=== PATIENT | male | born 1995 | race Caucasian/White ===

== ENCOUNTER 2022-12-29 10:46 | Outpatient (CLI) | payer BC, SELFPAY | END 2022-12-29 10:47 | disposition home or self-care (01) | PROVIDERS: PCP Family Medicine; Visit Provider Nurse Practitioner Family | DX: Z00.00 Encounter for general adult medical examination without abnormal findings (principal); Z13.6 Encounter for screening for cardiovascular disorders; Z13.1 Encounter for screening for diabetes mellitus | CPT/HCPCS: 80061; 82947 ==

== ENCOUNTER 2025-03-23 01:47 | Emergency (ER) | payer BC, SELFPAY ==
--- OUTSIDE RECORDS SUMMARY | 2025-03-23 01:49 | XMS_ITS | Clinical Summary ---
Author Organization [facility] Address [address], [place] [address] Care Team Providers Care Cutter In Name Role Phone Seth Brunson [facility] Primary Care Provid er Source Comments You are receiving this document as you are listed as the primary care provider,follow-up provider, or the patient has been referred to you for consultation.This is in compliance with the Medicare and[facility] Hospital[facility] EHR Incentive Program,which states Providers who transition their patient to another setting of careor provider of care or refers their patient to another provider of care shouldprovide summary care record for each transition of care or referral. [facility] Allergies No known active allergies Medications MedicationSigDispense QuantityRefillsLast FilledStart DateEnd DateStatus fluticasone (FLONASE) 50 MCG/ACT nasal solution Indications:ETD (Eustachian tube dysfunction), bilateralPlace 2 Sprays into both nostrils daily. 16 g 11105/17/2017Active Active Problems No known active problems Immunizations ImmunizationAdministration DatesNext VwwQRnJ83/04/2002HepA Ped/Adol (1-18 yrs) 06/10/2011,04/29/2009IPV (Polio)02/04/2002MCV4 (Menactra)04/29/2009MMR104/06/2001 TDAP (ADACEL)04/29/20099299Rdliuliqp36/27/2010 Social History Tobacco UseTypesPacks/DayYears UsedDateSmoking Tobacco: NeverSmokeless Tobacco: NeverAlcohol UseStandard Drinks/WeekCommentsYes0 (1 standard drink = 0.6 oz pure alcohol)Sex and Gender InformationValueDate RecordedSex Assigned at BirthNot on fileLegal OijJcuv97/10/2012 5:59 AM CDTGender IdentityNot on fileSexual OrientationNot on file Last Filed Vital Signs Vital SignReadingTime TakenCommentsBlood Lwmyxeeu076/7003/16/2018 10:11 AM DIRECTOR OF PRODUCT MANAGEMENT Aifob376903/16/2018 10:11 AM JREJopyeeloowq28.5 ??C (97.7 ??F)03/16/2018 10:11 AM CSTRespiratory Rate--Oxygen Saturation--Inhaled Oxygen Concentration--Xbanma86.7 kg (200 lb)03/16/2018 10:11 AM VIUZdagpz044.4 cm (5' 11.02)07/16/2014 3:54 PM CDTBody Mass Index-- Plan of Treatment Health MaintenanceDue DateLast DoneCommentsHep C Screening (Preventive Services) 1997IPV (Polio) Vaccine (2 of 3 - 4-dose series) Varicella Vaccine (2 of 2 - 2-dose childhood series)HIV Screening (Preventive Services)2013dult Preventive Visit2015HepB Vaccine (1)02/04/2016DTaP/Tdap/Td Vaccine (3 - Tdap), 02/04/2002COVID-19 Vaccine (1 - season)2024Influenza Vaccine (#1) 2024Zoster/Shingles Vaccine (1 of 2)2047MCV4 VaccineAged Out 04/29/2009No longer eligible based on patient's age to complete this topicHepA AdswjamZdpwcmxhg54/09/2012, 04/29/2009HPV Vaccine (No Doses Required)Completed Hib VaccineAged OutNo longer eligible based on patient's age to complete this topicMeningococcal B VaccineAged OutNo longer eligible based on patient's age to complete this topicPneumococcal VaccineAged OutNo longer eligible based on patient's age to complete this topic Insurance * Guarantor: Nader MARCELINO TypeRelation to PatientDate of BirthPhoneBilling AddressPersonal/Sjqwts92 [address] [place] [id number] Care Teams Team MemberRelationshipSpecialtyStart DateEnd Date Seth Brunson [facility] [address] [place] [address] [facility]07/26/13
--- OUTSIDE RECORDS SUMMARY | 2025-03-23 01:49 | XMS_ITS | Clinical Summary ---
Author Organization [facility] Address [address] [place] [address] Care Team Providers Care Relocation Commissioner Name Role Phone Pcp, No Primary Care Provider Unavailabl e Allergies Active AllergyReactionsCriticalityNoted AyceQmshawclRbwgdyriloxZqlfi46/03/2025 Medications MedicationSigDispense QuantityRefillsLast FilledStart DateEnd DateStatus ibuprofen (ADVIL; MOTRIN) 600 mg tablet Indications:Nerve entrapment,MononeuropathyTake 1 Tablet (600 mg) by mouth every 6 hours. Maximum of 3200 mg in 24 hours. 40 Tablet 03/06/2025 11:22 AM CST5Active acetaminophen (Tylenol Extra Strength) 500 mg tablet Indications:Nerve entrapment,MononeuropathyTake 2 Tablets (1,000 mg) by mouth every 6 hours. Max acetaminophen dose: 4000mg in 24 hrs. 80 Tablet 03/06/2025 11:22 AM CST5Active oxyCODONE (ROXICODONE) 5 mg immediate release tablet Indications:Nerve entrapment,MononeuropathyTake 1 Tablet (5 mg) by mouth every 4 hours if needed for Pain. 20 Tablet 03/06/2025 11:22 AM CST5Active crutch Indications:Nerve entrapment,MononeuropathyFor home use. 2 Each 5Active Cam Walker Indications:Nerve entrapment,MononeuropathyFor home use. short cam walker 1 Each Expired Active Problems ProblemNoted DateDiagnosed CkxcHndfwbopzjojm78/20/2025mblyopia, left eye 08/04/2022 Encounters DateTypeDepartmentCare TvdaThwdwyuleiz44/04/2025 7:36 AM CSTAnesthesia Event [address] [address] Nicolas Golden MD [facility], Pedrito Colunga MD 03/06/2025 7:20 AM SODA DRY HOUSE OPERATOR - 03/06/2025 10:11 AM CSTSurgery [address] [address] Maribel Dominguez, DPCabrera EXTERNAL NEUROLYSIS DEEP PERONEAL NERVE RIGHT FOOT, EXTERNAL NEUROLYSIS COMMON DIGITAL NERVE BRANCHES 1ST, 2ND, 3RD AND 4TH COMMON DIGITAL NERVE BRANCH,EXTERNAL NEUROLYSIS LATERAL DORSAL CUTANEOUS NERVES RIGHT FOOT,DEEP PERONEAL NERVE WRAP RIGHT FOOT,03/06/2025 5:59 AM SODA DRY HOUSE OPERATOR - 03/06/2025 11:50 AM SODA DRY HOUSE OPERATOR Hospital Encounter [address] [address] Maribel Dominguez, PATRICIA Nerve entrapment (Primary Dx); Mononeuropathy Discharge Disposition: Home Self Care03/05/2025Travelfrom Last 3 Months Social History Tobacco UseTypesPacks/DayYears UsedDateSmoking Tobacco: Some DaysCigarettes CigarsSmokeless Tobacco: CurrentAlcohol UseAnswerDate RecordedHow often do you have a drink containing alcohol?verage Number of DrinksNot on file 01/15/2025Frequency of Binge DrinkingNot on file01/15/2025Sex and Gender InformationValueDate RecordedSex Assigned at BirthNot on fileLegal SexMale 04/16/2012 7:10 AM CSTGender IdentityNot on fileSexual OrientationNot on file Last Filed Vital Signs Vital SignReadingTime TakenCommentsBlood Kdmgecii051/8403/06/2025 10:50 AM SODA DRY HOUSE OPERATOR Vaucw596803/06/2025 10:50 AM EFKEcnipicjdck23.2 ??C (97.1 ??F)03/06/2025 10:26 AM CSTRespiratory Jylg696805/07/2024 10:50 AM CSTOxygen Wdiyffclll67%03/06/2025 10:50 AM CSTInhaled Oxygen Concentration--Auodvk92.6 kg (213 lb)03/06/2025 6:27 AM SODA DRY HOUSE OPERATOR Wjurpp864.9 cm (6')03/06/2025 6:27 AM CSTBody Mass Index28.8903/06/2025 6:27 AM SODA DRY HOUSE OPERATOR Plan of Treatment Health MaintenanceDue DateLast DoneCommentsTetanus mhtmnto1802/04/2008Depression screening for age 12+2009HIV for age 15-6502/04/2012MI (ht and wt on same day) for age 18+2015Hepatitis C screening for age 18-7902/03/2015Hepatitis B series for 19+ (1 of 3 - 19+ 3-dose series)02/04/2016Pneumococcal series for age 6-49 (1 of 2 - PCV)02/04/2016HPV series for age 9-45 (1 - 3-dose SCDM series)4COVID-19 vaccine series (1 - 2024- season)2024Influenza Vaccine (#1)2024 Medical Devices ImplantedTypeAreaManufacturerDevice IdentifierShelf Expiration DateModel / Serial / LotProtector Nerve 3.5x40mm Porcine Strl Axoguard - [id number] Implanted:Qty: 1 on 03/06/2025 by Maribel Dominguez DPM at [facility] Right: Foot[employer]oGen [id number] / / [id number] Procedures Procedure NamePriorityDate/TimeAssociated DiagnosisCommentsEXPLORATION NERVETier 4: > 90 days03/06/2025 7:24 AM SODA DRY HOUSE OPERATOR MOMONEUROPATHY G58.+CRUSH INJURY RIGHT FOOT S97.81XA Case Notes 120 MIN 0730SUPINEANES:MAC/LOCALAXOGEN NERVE WRAP Special Needs 5ft11.5in 95.9kg 29.09 BMI from Last 3 Months Insurance * Guarantor: Frank Gonzales TypeRelation to PatientDate of BirthPhone Billing AddressPersonal/KuxxtsUxej[address] [place] [address] Advance Directives * Full Code (Latest Code Status on File) Date ActivatedDate DivmrdomzelHvjgcpob80/4/2025 6:09 AM03/06/2025 2:07 PMQuestion AnswerCommentsCode Status Discussion:* Unable to Assess Preferences, Provider to review later Care Teams Team MemberRelationshipSpecialtyStart DateEnd Date Pcp, No PCP - Yjxepaf40/3/25
[2025-03-23 01:54] VITALS: BP 148/80; PULSE 107; RESP 18; TEMP 36.5; O2SAT 97; BMI 27.1
[2025-03-23 02:42] LABS: PCR FLU A POSITIVE PCR FLU A (Negative); PCR FLU B Negative PCR FLU B (Negative); PCR RSV Negative PCR RSV (Negative); SARS PCR* Negative SARS-CoV-2 (Negative)
--- NOTE | 2025-03-23 03:30 | ED.GENADULT ---
HPI - General Adult General Chief complaint: Headache/Migraine Stated complaint: head pressure Time Seen by Provider: 03/23/25 02:14 Source: patient and family Mode of arrival: ambulatory Limitations: no limitations History of Present Illness HPI narrative: 30-year-old male with no chronic medical problems presents to the emergency department with about 40 hours of headache, fatigue, body aches, sinus congestion. Tried taking ibuprofen a few hours prior to arrival with no significant improvement in symptoms. No nausea, vomiting or diarrhea. Immunocompromised, no major long-term health problems. No severe shortness of breath. and son had similar symptoms a few days ago, improving. Not vaccinated against influenza this year. No history of underlying reactive airway disease or chronic lung disease. Nonsmoker. Reports benign past medical history. Did have recent tendon surgery on his foot, healing well. Allergy to amoxicillin causing hives. ROS notable for the generalized and HEENT symptoms as above, otherwise denies times 12 systems. 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, Social EtOH What is your current living situation?: I presently have a place to live Problems where you live: no known problems In the past 12 months, utilities in danger of being shut off: no In past 12 months, lack of transportation kept you from medical appts, meetings, work, or getting things needed for daily living: no In the past 12 mos, have been you worried that your food would run out before you had money to buy more?: never true In the past 12 mos, the food you bought just didn't last and you didn't have money to buy more?: never true Do you want help finding or keeping work or a job: I do not need or want help 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 Do you want help with school or training: No Smoking Status: Never smoker Do you use any of these nicotine containing products: None Second hand tobacco smoke exposure: No How often do you have a drink containing alcohol: 2-3 times a week Alcohol type: beer Alcohol type details: 4 How many standard drinks containing alcohol do you have on a typical day: 1 or 2 How often do you have six or more drinks on one occasion: Never AUDIT-C Alcohol total score: 3 Non-prescribed substance use: denies use Are you now , , , , never or living with a partner: Social isolation score (0-1 are the most socially isolated patients): 1 How often does anyone, including family, friends and others, physically hurt you: never How often does anyone, including family, friends and others, insult or talk down to you: never How often does anyone, including family, friends and others, threaten you with harm: never How often does anyone, including family, friends and others, scream or curse at you: never Do you need help with ADLs: I don't need any help Due to a physical, mental, or emotional condition, do you have difficulty doing errands alone such as visiting a doctor's office or shopping: No Do you think of yourself as: straight/heterosexual Gender Identity: male Are you currently sexually active: Yes In the past 12 months, how many sex partners have you had: one service: No Exam Const: Vital Signs, click to edit/add: Vital Signs - 24 hr 03/23/25 01:54 Temperature 97.7 F Pulse Rate [Pulse Oximeter] 107 H Respiratory Rate 18 Blood Pressure [Ri ght Upper Arm] 148/80 H Pulse Oximetry 97 Oxygen Delivery Me thod Room Air Documenting provider has reviewed patient's vital signs: yes Common normals: no apparent distress General appearance: cooperative and comfortable HENMT: Common normals: normocephalic, moist oral mucous membranes and oropharynx normal Head and scalp: normocephalic Other: Clear mucus rhinorrhea, normal TMs. Eye: Common normals: conjunctivae normal General eye: normal appearance of both eyes Conjunctiva: conjunctiva(e) normal Neck & C-Spine: Common normals: full ROM and no lymphadenopathy General: normal visual inspection Resp: Common normals: normal respiratory effort, no use of accessory muscles and clear to auscultation bilaterally Effort & inspection: able to speak in complete sentences Auscultation: clear to auscultation bilaterally Cardio: Common normals: regular rate, regular rhythm, S1 normal heart sound, S2 normal heart sound and no murmurs Rate: regular rate Rhythm: regular rhythm Heart sounds: S1 normal and S2 normal GI: Common normals: Normal to inspection, nondistended, normoactive bowel sounds present, soft to palpation, non-tender, no hepatosplenomegaly and no masses Palpation: soft and no hepatosplenomegaly Extremity: Common normals: normal to inspection Psych: Attitude: engaged Activity/motor behavior: appropriate eye contact Mood and affect: euthymic mood Insight: insight good Judgement: judgment good Skin: Common normals: no rashes or lesions noted General skin exam: no rashes or lesions noted Course Course ED Course: 30-year-old male with fever, myalgias, sinus congestion most likely consistent with influenza. Swabs do happen to be positive as well. Counseled patient on findings. Upcoming holiday. We discussed Tamiflu. It would make him less contagious. Potential benefit since he has been symptomatic less than 48 hours but not quite as much as if it had been less than 24 hours. We discussed risks and benefits including potential side effects and he does agree to proceed. Will give a dose of Celebrex here in the ED for body aches, discussed Tylenol and ibuprofen outpatient. Begin Tamiflu. Alarm symptoms reviewed that would warrant ED re-evaluation. No signs of secondary complications here in the ED today. Written instructions provided. Vital Signs Vital signs: Initial Vital Signs Temperature 97.7 F 03/23/25 01:54 Temperature Source Temporal Artery Scan 03/23/25 01:54 Pulse Rate 107 H 03/23/25 01:54 Respiratory Rate 18 03/23/25 01:54 Blood Pressure 148/80 H 03/23/25 01:54 Blood Pressure Mean 102 03/23/25 01:54 Blood Pressure Position Sitting 03/23/25 01:54 Pulse Oximetry 97 03/23/25 01:54 Oxygen Delivery Method Room Air 03/23/25 01:54 Vital Signs Temperature 97.7 F 03/23/25 01:54 Pulse Rate 107 H 03/23/25 01:54 Respiratory Rate 18 03/23/25 01:54 Blood Pressure 148/80 H 03/23/25 01:54 Pulse Oximetry 97 03/23/25 01:54 Oxygen Delivery Method Room Air 03/23/25 01:54 Temperature 97.7 F 03/23/25 01:54 Pulse Rate 107 H 03/23/25 01:54 Respiratory Rate 18 03/23/25 01:54 Blood Pressure 148/80 H 03/23/25 01:54 Pulse Oximetry 97 03/23/25 01:54 Oxygen Delivery Method Room Air 03/23/25 01:54 Medical Decision Making Lab Data Lab results reviewed: Yes I reviewed the patient's lab results Lab results narrative: Positive for influenza a, as expected. Labs: Lab Results 03/23/25 Range/Units 02:00 SARS-CoV-2 (PCR) Negative SARS-CoV-2 (Negative) Influenza Type A (PCR) POSITIVE PCR FLU A A (Negative) Influenza Type B (PCR) Negative PCR FLU B (Negative) RSV (PCR) Negative PCR RSV (Negative) Discharge Plan Discharge Clinical Impression: Influenza A Patient Disposition: Home w/ Parent or Adult Condition: Stable Instructions: Influenza (DC) Additional Instructions: Your symptoms are consistent with influenza a, and your swabs are positive, as expected. This illness causes significant body aches fatigue, high fever, headache, nasal congestion, cough and sometimes GI symptoms as well. Symptoms should be expected to last for 5-7 days. After discussing the risks and benefits, you are in agreement to start on Tamiflu, a common antiviral medicine. This will dramatically reduce your contagiousness and for most people does make them start to feel better after about 24 hours but only partially. I do recommend Tylenol 1000 mg every 6 hours and ibuprofen 600 mg every 6 hours. Your given a dose of Celebrex here in the ED, this will act as your ibuprofen for the next 12 hours. Feel free to take some Tylenol when you get home as well. Get plenty of rest, drink lots of fluids. You will still have some fever. If your symptoms do not resolve in another 7 days, I would recommend re-evaluation. If you have any severe shortness of breath, severe weakness, other signs of persistent worsening, please return to the emergency room. Off work for the next 24 hours, may return Monday morning if feeling at least half better. Activity Level: Activity as Tolerated Discharge Diet: Regular Prescriptions: No Action No Known Home Medications Follow Up/Referrals: Ailabouni,David D, MD [Primary Care Provider, Family Practice] Stand Alone Forms: [employer] Info Instructions
[2025-03-23] MEDS: CELECOXIB 200 MG CAPSULE PO (03:52)
[2025-03-23 03:55] VITALS: BP 141/80; PULSE 120; RESP 20; O2SAT 97
== END 2025-03-23 03:57 | disposition home or self-care (01) ==
LOC: ED 03:40
PROVIDERS: Emergency Provider Family Medicine
DX: J10.1 Influenza due to other identified influenza virus with other respiratory manifestations (principal); Z88.0 Allergy status to penicillin
CPT/HCPCS: 87631; 99283; A9270